=== PATIENT | male | born 1965 ===

== ENCOUNTER 2020-11-05 22:12 | Emergency (ER) | payer SELFPAY ==
[2020-11-05] MEDS ORDERED: Ondansetron 4 MG/2 ML SDV ONE (22:16)
[2020-11-05] MEDS ORDERED: Ondansetron 4 MG/2 ML SDV IVPUSH ONE (22:31)
[2020-11-05] MEDS ORDERED: Morphine 4 MG/ML Syringe IVPUSH ONE (22:36)
[2020-11-05] MEDS ORDERED: Morphine 4 MG/ML Syringe ONE (22:37)
[2020-11-05 22:48] LABS: BLOOD UREA NITROGEN,BUN 23 mg/dL (7.0-18.0); CARBON DIOXIDE,CO2 24.8 mmol/L (21.0-32.0); CHLORIDE,CL 103 mmol/L (98-107); GLUCOSE RANDOM 165 mg/dL (74-106); POTASSIUM,K 3.4 mmol/L (3.5-5.1); SODIUM,NA 139 mmol/L (136-148)
[2020-11-05] MEDS ORDERED: Nitroglycerin 0.4 MG Tab.SL SL PRN (22:49)
[2020-11-05] MEDS ORDERED: Nitroglycerin 0.4 MG Tab.SL ONE (22:50)
--- NOTE | 2020-11-05 22:53 | CR ---
Indication: Chest pain Technique: Chest 1 view Comparison: None Findings/Impression: Cardiovascular and mediastinum: Heart size and vasculature are normal in caliber and appearance. Lungs and pleural space: No pleural effusion or pneumothorax. Mild pulmonary cephalization without focal consolidation. Bones and soft tissues: No acute findings. Dictated by Jake Tsang MD @ Nov 05 2020 10:51PM Signed by Dr. Jake Tsang @ Nov 05 2020 10:51PM
[2020-11-05] MEDS ORDERED: Enoxaparin 100 MG/1 ML Syringe SUBCUT STA (22:58)
[2020-11-05] MEDS ORDERED: Magnesium Sulfate (4.06 MEQ/ML) 5 GM/10 ML SDV IV STA (23:00)
[2020-11-05] MEDS ORDERED: Potassium Chloride Riders 20 MEQ in Premix Bag 1 BAG IV ONE (23:00)
[2020-11-05] MEDS ORDERED: Enoxaparin 100 MG/1 ML Syringe ONE (23:01)
[2020-11-05] MEDS ORDERED: Magnesium Sulfate/Water 2 GM/50 ML BAG ONE (23:01)
[2020-11-05] MEDS ORDERED: fentaNYL 50 MCG/ML SDV IVPUSH ONE ×2 (23:07→23:09)
[2020-11-05] MEDS ORDERED: fentaNYL 50 MCG/ML SDV ONE (23:08)
[2020-11-05] MEDS ORDERED: Magnesium Sulfate/Water 2 GM/50 ML BAG IV ONE (23:15)
--- NOTE | 2020-11-06 00:06 | EDM.PDOC ---
ED HPI GENERAL MEDICAL PROBLEM - General Chief Complaint: Chest Pain Stated Complaint: CHEST PAIN Time Seen by Provider: 11/05/20 22:21 - History of Present Illness INITIAL COMMENTS - FREE TEXT/NARRATIVE: CHIEF COMPLAINT(S): Chest pain HISTORY OF PRESENT ILLNESS: This is a 55-year-old man who presents to the emergency department as a medical resuscitation via EMS with a chief complaint of chest pain. Per EMS: Approximately 30 minutes prior to arrival the patient started to experience left-sided chest pain which radiated to his left shoulder and arm with diaphoresis and shortness of breath. They stated that in route the patient's vitals were normal but there was concern for possible STEMI with elevation in V2 through V4 with some depressions in 2 through aVF. They provide the patient with 324 mg of p.o. aspirin, 100 mcg of fentanyl and 3 doses of nitroglycerin without any relief of the patient's chest pain. Per the patient: He started to experience left-sided chest pain which he rates as a 10 out of 10 with radiation to his left arm. He describes the pain as cramping and pressure-like. He states that he did have diaphoresis and nausea but denies any vomiting. He denies any prior history of CAD or CHF. He denies any relieving factors or aggravating factors. He denies any recent travel, recent surgery, prior history of DVT or PE. He denies any recent illnesses and no Covid exposures. He has not yet tried anything except for the pain medication provided by EMS. He denies any significant family history of CHF or CAD. REVIEW OF SYSTEMS: Constitutional: Positive for diaphoresis. Denies fever, chills. Eyes: Denies eye pain Ears, Nose, Mouth, & Throat: Denies earache Cardiovascular: Positive for chest pain Respiratory: Denies shortness of breath Gastrointestinal: Positive for nausea. Denies vomiting, diarrhea, hematochezia Genitourinary: Denies hematuria Skin:Denies a rash MSK: Positive left arm pain Neurological: Denies blurred vision, numbness, tingling, weakness Psychiatric: Denies depression PAST MEDICAL HISTORY: As per history of present illness and as reviewed below otherwise noncontributory. SURGICAL HISTORY: As per history of present illness and as reviewed below otherwise noncontributory. SOCIAL HISTORY: Prior history of alcohol and tobacco abuse. FAMILY HISTORY: As per history of present illness and as reviewed below otherwise noncontributory. EXAMINATION OF ORGAN SYSTEMS/BODY AREAS: VITALS: Blood pressure is 126/87, heart rate 88, respiratory rate 18 with an oxygen saturation of 97% on room air. Temperature 36.0. GENERAL: This is a middle-aged gentleman who is diaphoretic and has his hand clenched onto his chest.. HEAD: Normocephalic, atraumatic. EYES: EOMs intact. PERRL. ENT. External ears WNL. Nares patent. Oropharynx is clear with no erythema or exudate. No uvular or tongue swelling. NECK: Supple, no masses. Trachea is midline. LUNGS: No tachypnea or intercostal retractions. Clear to auscultation bilaterally, no wheezing, no rales, no stridor, no rhonchi. CARDIOVASCULAR: Regular rate and rhythm with S1-S2. No murmur, rubs or gallops. No edema. No JVD. ABDOMEN: Soft, non-distended, non-tender. Bowel sounds present in all 4 quadrants. No rebound tenderness, guarding, or peritoneal signs. MUSCULOSKELETAL: No deformity. Patient is moving all 4 limbs spontaneously. NEUROLOGICAL: Alert and oriented x 3. No focal neurological deficits noted. SKIN: No rashes, or pallor. No signs of injury. MEDICAL DECISION MAKING AND COURSE IN THE ED WITH INTERPRETATION/REVIEW OF DIAGNOSTIC STUDIES: This is a 55-year-old man who presents to the emergency department as a medical resuscitation via EMS with chief complaint of chest pain and concern for possible STEMI by EMS. Immediately upon entering the resuscitation room the patient was disrobed, placed on continuous cardiac monitoring, and IV access was established by nursing. Patient is able to speak thus displaying a patent airway, breath sounds are equal bilaterally, and patient has palpable pulses in all 4 extremities. The patient was already provided with aspirin, fentanyl and nitroglycerin. We will hold off on any pain medication administration at this time. We did obtain an EKG which did not reveal a STEMI at this time. Will obtain a cardiac work-up including CBC, BMP, troponin, coags, type and screen, and magnesium. We will place the patient on cardiac monitoring and pulse oximetry and obtain q. 15-minute EKGs to evaluate for changes. Time: 2207 Twelve-lead EKG interpreted by myself. Normal sinus rhythm at a rate of 66beats per minute. Normal axis. OH interval is 145ms. QRS duration is 96ms. ST segments are mildly elevated in V2 otherwise no ST depressions. There is a T wave inversion in lead III with a con commitment Q wave. Hypertrophy not noted. No prior EKGs in our system. Interpretation: Sinus rhythm with S1Q3T3 and nonspecific ST elevation in V2 The patient continued to have chest pain therefore I did provide the patient with 1 sublingual nitroglycerin to evaluate for a response. We provided the patient with 4 mg of IV morphine at this time. Time: 2220 Twelve-lead EKG interpreted by myself. Normal sinus rhythm at a rate of 66beats per minute. Normal axis. OH interval is 157ms. QRS duration is 92ms. ST segments are scoping with changes in 2, 3, aVF with continued ST elevation in V2 with deepening of the T wave in aVR. T wave inversion in lead III Q wave in lead III. Hypertrophy not noted. Interpretation: Sinus rhythm with slipping of the ST segments in the inferior leads with continued elevation in V2. Concern for dynamic changes. Time: 2237 Twelve-lead EKG interpreted by myself. Normal sinus rhythm at a rate of 67beats per minute. Normal axis. OH interval is 158ms. QRS duration is 92ms. ST segments are scooping in leads II, three, aVF with more pronounced ST depression in leads V3, V4, V5 with deepening of the T wave inversion and mild elevation in aVR.. Q wave in lead III. Hypertrophy not noted. Interpretation: Sinus rhythm with lateral ST depression with dynamic changes concerning for proximal LAD occlusion After this EKG the patient had continued pain. I did discuss that I would like to contact a web production assistant for transfer. He was amenable to this plan. I contacted [facility] in [place] and spoke with who recommended transfer at this time and to provide the patient with Lovenox. I contacted emergency room physician Dr. Slaughter who is also aware of the patient. The patient will be transferred via helicopter. Time: 2248 Twelve-lead EKG interpreted by myself. Normal sinus rhythm at a rate of 71beats per minute. Normal axis. OH interval is 160ms. QRS duration is 88ms. ST segments are scooping in leads II, three, aVF with continued ST depression in V3 through V5 with more pronounced T wave inversion mild elevation in aVR. Q wave in lead III. Hypertrophy not noted. Interpretation: Sinus rhythm with lateral ST depression with dynamic changes concerning for proximal LAD occlusion Laboratory: CBC is unremarkable. Coags are within normal limits. D-dimer is normal. BMP reveals hypokalemia at 3.4, hypomagnesemia at 1.7. Troponin x1 is negative. Covid is negative. D-dimer is normal. The radiological images were viewed by myself along with reading the report from the radiologist. Chest x-ray does not reveal any acute cardiopulmonary findings. After labs I did provide the patient with 2 g of IV magnesium and 40 mEq of potassium IV. I did contact the patient's Naz at [phone] and she was updated on the patient's condition. DISPOSITION: Patient was transferred to [facility] in [place] in stable condition CONDITION: Serious PROCEDURES: EKG interpretation, pulse oximetry interpretation FINAL IMPRESSION(S)/DIAGNOSES: 1. Acute chest pain, suspect proximal LAD STEMI 2. Acute hypokalemia 3. Acute hypomagnesemia Critical Care Procedure Note Authorized and performed by: Chema John M.D. Critical Care Time: 60 minutes Due to a high probability of clinically significant, life threatening deterioration, the patient required my highest level of preparedness to intervene emergently and I personally spent this critical care time directly and personally managing the patient. This critical care time included obtaining a history, examining the patient, pulse oximetry; ordering and review of studies; arranging urgent treatment with development of a management plan; evaluation of a patients reponse to treatment; frequent assessment; and discussions with other providers. This critical care time was performed to assess and manage the high probability of imminent, life threatening deterioration that could result in multiorgan failure. It was exclusive of separate billable procedures and treating other patients. Please see MDM section and rest of the note for further information on patient assessment and treatment. Please see MDM section and rest of the note for further information on patient assessment and treatment. chest/L arm Pain Score (Numeric/FACES): 6 - Related Data Allergies Allergy/AdvReac Type Severity Reaction Status Date / Time No Known Allergies Allergy Verified 11/05/20 22:24 Home Meds: Home Meds . [No Known Home Meds] 11/05/20 [History] Past Medical History - Past Health History Medical/Surgical History: Denies Medical/Surgical History Social & Family History - Tobacco Use Tobacco Use Status *Q: Never Tobacco User - Recreational Drug Use Recreational Drug Use: No ED ROS GENERAL - Review of Systems Review Of Systems: See Below ED EXAM, GENERAL - Physical Exam Exam: See Below Course - Vital Signs Last Recorded V/S: Last Vital Signs Temp 35.8 C L 11/05/20 23:07 Pulse 72 11/05/20 23:07 Resp 18 11/05/20 23:07 BP 121/81 11/05/20 23:07 Pulse Ox 95 11/05/20 23:07 - Orders/Labs/Meds Orders: Active Orders 24 hr Category Date Time Status EKG Documentation Completion [RC] STAT Care 11/05/20 22:21 Active Magnesium Sulfate/Water [Magnesium Sulfate in Water 2 Med 11/05/20 23:15 Active GM/50 ML] 2 gm in 50 ml IV ONETIME Nitroglycerin [Nitrostat] Med 11/05/20 22:49 Active 0.4 mg SL Q5M PRN Potassium Chloride Riders [KCL in Water 20 MEQ/50 ML] Med 11/05/20 23:00 Active 20 meq Premix Bag 1 bag IV ONETIME Medication Orders Potassium Chloride 20 meq/ (Premix) 50 mls @ 25 mls/hr IV ONETIME ONE Stop: 11/06/20 00:59 Last Admin: 11/05/20 23:18 Dose: Not Given Documented by: ALISSA Magnesium Sulfate (Magnesium Sulfate In Water 2 Gm/50 Ml) 2 gm in 50 mls @ 50 mls/hr IV ONETIME ONE Stop: 11/06/20 00:14 Last Admin: 11/05/20 23:05 Dose: 50 mls/hr Documented by: ALISSA Nitroglycerin (Nitrostat) 0.4 mg SL Q5M PRN PRN Reason: Chest Pain Last Admin: 11/05/20 22:50 Dose: 0.4 mg Documented by: ALISSA Labs: Laboratory Tests 11/05/20 11/05/20 11/05/20 Range/Units 22:15 22:15 22:15 WBC 10.09 (4.0-11.0) K/uL RBC 4.79 (4.50-5.90) M/uL Hgb 15.4 (13.0-17.0) g/dL Hct 45.9 (38.0-50.0) % MCV 95.8 (80.0-98.0) fL MCH 32.2 H (27.0-32.0) pg MCHC 33.6 (31.0-37.0) g/dL RDW Std Deviation 45.4 (28.0-62.0) fl RDW Coeff of Shannan 13 (11.0-15.0) % Plt Count 243 (150-400) K/uL MPV 12.00 (7.40-12.00) fL Neut % (Auto) 34.3 L (48.0-80.0) % Lymph % (Auto) 52.5 H (16.0-40.0) % Briscoe % (Auto) 9.0 (0.0-15.0) % Eos % (Auto) 3.8 (0.0-7.0) % Baso % (Auto) 0.4 (0.0-1.5) % Neut # (Auto) 3.5 (1.4-5.7) K/uL Lymph # (Auto) 5.3 H (0.6-2.4) K/uL Briscoe # (Auto) 0.9 H (0.0-0.8) K/uL Eos # (Auto) 0.4 (0.0-0.7) K/uL Baso # (Auto) 0.0 (0.0-0.1) K/uL Nucleated RBC % 0.0 /100WBC Nucleated RBCs # 0 K/uL INR 1.00 D-Dimer, Quantitative 0.27 (0.0-0.50) mg/L FEU Sodium 139 (136-148) mmol/L Potassium 3.4 L (3.5-5.1) mmol/L Chloride 103 (98-107) mmol/L Carbon Dioxide 24.8 (21.0-32.0) mmol/L BUN 23 H (7.0-18.0) mg/dL Creatinine 1.0 (0.8-1.3) mg/dL Est Cr Clr Drug Dosing TNP Estimated GFR (MDRD) > 60.0 ml/min Glucose 165 H (74-106) mg/dL Calcium 9.0 (8.5-10.1) mg/dL Magnesium 1.7 L (1.8-2.4) mg/dL Troponin I < 0.050 (0.000-0.056) ng/mL SARS-CoV-2 RNA (FRANCINE) (NEGATIVE) Blood Type Antibody Screen 11/05/20 11/05/20 Range/Units 22:30 22:40 WBC (4.0-11.0) K/uL RBC (4.50-5.90) M/uL Hgb (13.0-17.0) g/dL Hct (38.0-50.0) % MCV (80.0-98.0) fL MCH (27.0-32.0) pg MCHC (31.0-37.0) g/dL RDW Std Deviation (28.0-62.0) fl RDW Coeff of Shannan (11.0-15.0) % Plt Count (150-400) K/uL MPV (7.40-12.00) fL Neut % (Auto) (48.0-80.0) % Lymph % (Auto) (16.0-40.0) % Briscoe % (Auto) (0.0-15.0) % Eos % (Auto) (0.0-7.0) % Baso % (Auto) (0.0-1.5) % Neut # (Auto) (1.4-5.7) K/uL Lymph # (Auto) (0.6-2.4) K/uL Briscoe # (Auto) (0.0-0.8) K/uL Eos # (Auto) (0.0-0.7) K/uL Baso # (Auto) (0.0-0.1) K/uL Nucleated RBC % /100WBC Nucleated RBCs # K/uL INR D-Dimer, Quantitative (0.0-0.50) mg/L FEU Sodium (136-148) mmol/L Potassium (3.5-5.1) mmol/L Chloride (98-107) mmol/L Carbon Dioxide (21.0-32.0) mmol/L BUN (7.0-18.0) mg/dL Creatinine (0.8-1.3) mg/dL Est Cr Clr Drug Dosing Estimated GFR (MDRD) ml/min Glucose (74-106) mg/dL Calcium (8.5-10.1) mg/dL Magnesium (1.8-2.4) mg/dL Troponin I (0.000-0.056) ng/mL SARS-CoV-2 RNA (FRANCINE) NEGATIVE (NEGATIVE) Blood Type A POSITIVE Antibody Screen NEGATIVE Meds: Medications Generic Name Dose Route Start Last Admin Trade Name Pradeep PRN Reason Stop Dose Admin Potassium Chloride 20 meq/ 50 mls @ 25 mls/hr 11/05/20 23:00 11/05/20 23:18 Premix IV 11/06/20 00:59 Not Given ONETIME ONE Magnesium Sulfate 2 gm in 50 mls @ 50 mls/hr 11/05/20 23:15 11/05/20 23:05 Magnesium Sulfate In Water 2 Gm/50 Ml IV 11/06/20 00:14 50 mls/hr ONETIME ONE Administration Nitroglycerin 0.4 mg 11/05/20 22:49 11/05/20 22:50 Nitrostat SL 0.4 mg Q5M PRN Administration Chest Pain Discontinued Medications Generic Name Dose Route Start Last Admin Trade Name Pradeep PRN Reason Stop Dose Admin Enoxaparin Sodium 100 mg 11/05/20 22:58 11/05/20 23:02 Lovenox SUBCUT 11/05/20 22:59 100 mg DAILY STA Administration Enoxaparin Sodium Confirm 11/05/20 23:01 11/05/20 23:07 Lovenox Administered 11/05/20 23:02 Not Given Dose 100 mg .ROUTE .STK-MED ONE Fentanyl 50 mcg 11/05/20 23:07 11/05/20 23:10 Fentanyl IVPUSH 11/05/20 23:08 50 mcg ONETIME ONE Administration Fentanyl 50 mcg 11/05/20 23:09 11/05/20 23:16 Fentanyl IVPUSH 11/05/20 23:10 Not Given ONETIME ONE Fentanyl Confirm 11/05/20 23:08 11/05/20 23:15 Fentanyl Administered 11/05/20 23:09 Not Given Dose 50 mcg .ROUTE .STK-MED ONE Magnesium Sulfate Confirm 11/05/20 23:01 11/05/20 23:07 Magnesium Sulfate In Water 2 Gm/50 Ml Administered 11/05/20 23:02 Not Given Dose 2 gm in 50 mls @ as directed .ROUTE .STK-MED ONE Magnesium Sulfate 2 gm 11/05/20 23:00 Magnesium Sulfate 50% IV 11/05/20 23:01 ONETIME STA Morphine Sulfate 4 mg 11/05/20 22:36 11/05/20 22:39 Morphine IVPUSH 11/05/20 22:37 4 mg ONETIME ONE Administration Morphine Sulfate Confirm 11/05/20 22:37 11/05/20 22:49 Morphine Administered 11/05/20 22:38 Not Given Dose 4 mg .ROUTE .STK-MED ONE Nitroglycerin Confirm 11/05/20 22:50 11/05/20 22:56 Nitrostat Administered 11/05/20 22:51 Not Given Dose 0.4 mg .ROUTE .STK-MED ONE Ondansetron HCl Confirm 11/05/20 22:16 11/05/20 22:33 Zofran Administered 11/05/20 22:17 Not Given Dose 4 mg .ROUTE .STK-MED ONE Ondansetron HCl 4 mg 11/05/20 22:31 11/05/20 22:33 Zofran IVPUSH 11/05/20 22:32 4 mg ONETIME ONE Administration Departure - Departure Time of Disposition: 23:25 Disposition: DC/Tfer to [facility] 02 Reason for Transfer *Q: Primary PCI Indicated Clinical Impression: Acute myocardial infarction Qualifiers: Myocardial infarction type: other Qualified Code(s): I21.A9 - Other myocardial infarction type Referrals: PCP,None [Primary Care Provider] - Sepsis Event Note (ED) - Evaluation Sepsis Screening Result: No Definite Risk - Focused Exam Vital Signs: Vital Signs Temp Pulse Resp BP BP Pulse Ox 11/05/20 23:07 35.8 C L 72 18 121/81 95 11/05/20 22:50 128/86 11/05/20 22:40 73 20 156/92 H 96 11/05/20 22:21 36.0 C L 88 18 126/87 97 - My Orders Last 24 Hours: My Active Orders 11/05/20 22:21 EKG Documentation Completion [RC] STAT 11/05/20 22:49 Nitroglycerin [Nitrostat] 0.4 mg SL Q5M PRN 11/05/20 23:00 Potassium Chloride Riders [KCL in Water 20 MEQ/50 ML] 20 meq Premix Bag 1 bag IV ONETIME 11/05/20 23:15 Magnesium Sulfate/Water [Magnesium Sulfate in Water 2 GM/50 ML] 2 gm in 50 ml IV ONETIME - Assessment/Plan Last 24 Hours: My Active Orders 11/05/20 22:21 EKG Documentation Completion [RC] STAT 11/05/20 22:49 Nitroglycerin [Nitrostat] 0.4 mg SL Q5M PRN 11/05/20 23:00 Potassium Chloride Riders [KCL in Water 20 MEQ/50 ML] 20 meq Premix Bag 1 bag IV ONETIME 11/05/20 23:15 Magnesium Sulfate/Water [Magnesium Sulfate in Water 2 GM/50 ML] 2 gm in 50 ml IV ONETIME
== END 2020-11-05 23:25 ==
LOC: MW.ED 22:12
DX: R07.89 Other chest pain (principal); E87.6 Hypokalemia; E83.42 Hypomagnesemia; Z20.822 Contact with and (suspected) exposure to COVID-19
CPT/HCPCS: 36415; 71045; 80048; 83735; 84484; 85025; 85379; 85610; 86850; 86900; 86901; 87635; 93005; 96365; 96372; 96374; 96375; 99291; A9270; J1650; J2270; J2405; J3010; J3475; 93010; U0002